=== PATIENT | female | born 1990 | race Caucasian/White ===

== ENCOUNTER 2017-06-06 06:50 | Day surgery (SDC) | payer BC ==
[~2017-06-06] VITALS: Ht 160 cm; Wt 56.7 kg
--- NOTE | 2017-06-06 10:14 | NUR ---
06/06/17 1014 Anneliese Shukla 1005 PATIENT ASLEEP ON ARRIVAL TO PACU, DOES NOT RESPOND TO PAIN OR VERBAL STIMULI. RESP EVEN AND UNLABORED, ORAL AIRWAY IN PLACE, MASK AT 6 LITERS. 1010 PATIENT OPENS EYES TO VERBAL STIMULI, FOLLOWS COMMANDS, OPENS MOUTH, ORAL AIRWAY REMOVED. RESP EVEN AND UNLABORED, MASK AT 6 LITERS. PATIENT DENIES PAIN OR NAUSEA.
--- NOTE | 2017-06-06 10:43 | NUR ---
PT ARRIVES TO DS TREATMENT ROOM FROM PACU ALERT AND ORIENTED. PT DENIES ANY PAIN ON ARRIVAL. PT PROVIDED WARM BLANKET, ICED WATER AND CRACKERS. CALL LIGHT W/IN REACH. NO C/O'S AT THIS TIME.
--- NOTE | 2017-06-06 11:33 | NUR ---
PT RESTING IN BED WITH EYES CLOSED, RESPIRATIONS EVEN AND UNLABORED. PT RESPONDS TO RN ON ARRIVAL TO . PT TOLERATES PO WELL WITH NO C/O NAUSEA. PT DENIES PAIN AT THIS TIME. PT AGREES TO USE CALL LIGHT WHEN READY TO GET UP AND USE BR. CALL LIGHT REMAINS AT PT SIDE.
--- NOTE | 2017-06-06 11:45 | OR ---
[facility] [address], [place] [address] Signed DATE OF OPERATION: 06/06/2017 SURGEON: Sheng Esquivel MD PREOPERATIVE DIAGNOSIS: Right palpable breast lump in the upper outer quadrant (12 x 11 x 9 mm). POSTOPERATIVE DIAGNOSIS: Right palpable breast lump in the upper outer quadrant (12 x 11 x 9 mm). PROCEDURE: Right breast excisional biopsy, upper outer quadrant. ESTIMATED BLOOD LOSS: None. INDICATIONS: Florencio is a 26-year-old female knows to palpable lump in the lateral aspect of her right breast. It is in the area of her breast as it travels over the lateral edge of the pectoralis major muscle and into the axilla. An ultrasound confirmed a 12 x 11 x 9 mm solid nodule with internal vascularity. 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 She was offered a core needle biopsy by her primary care provider in the radiologist. However, she wanted to have it removed entirely. Consequently, she was asked to see me as a general surgeon. In the office, I met with Florencio and her in the office. I gave them [employer] brochure on breast and breast biopsies. We went in great detail regarding a core needle biopsy versus an excisional biopsy. In the end, she has maintained her desire to have an excisional biopsy. She understands there is risk including, but not limited to bleeding, infection, scarring, change in contour of the skin as well as possible need for additional surgery and/or treatments based on pathology results. She had expressed understanding and wished to proceed. PROCEDURE NOTE: I met with Florencio and her in our preop area. With our nurse in the room, Florencio was able to easily use her index finger to show me the palpable lump in the upper outer quadrant of the right breast. We circled that area and marked it appropriately. After this, Florencio was taken into our operating room and placed in the supine position under general endotracheal tube anesthesia. She was given preoperative antibiotics along with subcutaneous heparin. SCDs were utilized. She was then prepped and draped in the usual sterile fashion. I made a 2.54 cm curvilinear incision over the Electronically Signed By: SHENG ESQUIVEL MD 06/06/17 1145 PATIENT NAME: FLORENCIO DANIELS OPERATIVE REPORT DATE OF : 89 REPORT #: [id number] PHYSICIAN: SHENG ESQUIVEL MD PCP: ARUNA GAMBOA PA-C REPORT IS CONFIDENTIAL AND NOT TO BE RELEASED WITHOUT AUTHORIZATION [facility] [address] [place], [place] [address] Signed lesion and carried that down to the tissue bluntly and with the cautery. With repeated palpation, we completely excised the lesion with the help of the cautery. As expected at age 26, Florencio's breast tissue was very dense in fact when one pushes on the edge of her breast tissue, the entire breast moves back and forth across her chest wall. We marked our specimen appropriately. We then injected local anesthetic throughout the wound. The wound was irrigated and suctioned out until clear. The deep tissue was gently approximated with 2 interrupted 3-0 Monocryl sutures. The dermis was reapproximated with interrupted 3-0 subcuticular Monocryl sutures. The skin edges were reapproximated with a running 6-0 fast absorbing plain gut suture. Dry gauze and tape were then applied. Florencio was then awakened from anesthesia, extubated in the OR, and taken to recovery room in stable condition. Sheng Esquivel MD ALB/MODL /[id number] cc: MD Aruna Carye PA-C Copies: SHENG ESQUIVEL MD, CHLOE K PA-C ~ Electronically Signed By: SHENG ESQUIVEL MD 06/06/17 1145 PATIENT NAME: FLORENCIO DANIELS OPERATIVE REPORT DATE OF : 89 REPORT #: [id number] PHYSICIAN: SHENG ESQUIVEL MD PCP: ARUNA GAMBOA PA-C REPORT IS CONFIDENTIAL AND NOT TO BE RELEASED WITHOUT AUTHORIZATION
== END 2017-06-06 12:10 | disposition home or self-care (01) ==
LOC: DS 06:50
PROVIDERS: Colon & Rectal Surgery
PROC: 0HBT0ZX Excision of Right Breast, Open Approach, Diagnostic (ICD-10-PCS; principal; 2017-06-06 08:30)
DX: N63.11 Unspecified lump in the right breast, upper outer quadrant (principal); N64.89 Other specified disorders of breast; J45.909 Unspecified asthma, uncomplicated; G43.909 Migraine, unspecified, not intractable, without status migrainosus; Z87.891 Personal history of nicotine dependence
CPT/HCPCS: 00404; J0690; J1100; J1644; J1885; J2250; J2405; J2704; J2765; J3010; J7120

== ENCOUNTER 2018-12-10 20:06 | Emergency (ER) | payer BC, OTHER ==
[~2018-12-10] VITALS: Ht 160 cm; Wt 71.2 kg
== END 2018-12-10 20:33 | disposition home or self-care (01) ==
LOC: ED 20:06
DX: R51 Headache (principal)

== ENCOUNTER 2019-01-04 17:28 | Inpatient (IN) | payer OTHER ==
[~2019-01-04] VITALS: Ht 160 cm; Wt 76.0 kg
--- NOTE | 2019-01-05 07:49 | PR ---
[facility] [address] [facility] [place], [place] [address] Signed Progress Notes IP Datetime Report Generated by CPN: 01/05/2019 07:49 PROGRESS NOTES: [id number] Impression: Normal progression of labor Plan: Continue present management; Anticipate Vaginal Delivery VITAL SIGNS: [id number] Vital Signs: Reviewed; Within Normal Limits VS Notable Details: Good urine output EXAM: [id number] Dilatation: 4.0 Effacement: 80 Station: -2 Uterine Contractions: every 2-3 minutes MEMBRANES: [id number] Membrane Status: Ruptured Amniotic Fluid Color: Clear ROM Note: SROM about 0715 Comments: Comfortable with Epidural. Patient on back, will try moving to side, increase IV, watch FHR. Fetus A: [id number] FHR Baseline: 120 Variability: Moderate 6-25bpm Accelerations: 15X15 Decelerations: Late Presentation: Vertex Fetus B: [id number] Signing Physician: Presley Turner MD Copies: ~ *Electronically Signed* 01/05/19 0749 PRESLEY TURNER MD PATIENT NAME: FLORENCIO DANIELS PREM PROGRESS NOTE DATE OF : 89 PHYSICIAN: PRESLEY TURNER MD RPT #: [id number] REPORT IS CONFIDENTIAL AND NOT TO BE RELEASED WITHOUT AUTHORIZATION
--- NOTE | 2019-01-05 09:59 | PR ---
[facility] [address] [facility] [place], [place] [address] Signed Progress Notes IP Datetime Report Generated by CPN: 01/05/2019 09:59 PROGRESS NOTES: [id number] Impression: Normal progression of labor Procedures: Scalp Electrode Plan: Continue present management; Anticipate Vaginal Delivery VITAL SIGNS: [id number] Vital Signs: Reviewed; Within Normal Limits VS Notable Details: Good urine output EXAM: [id number] Dilatation: 8.0 Effacement: 95 Station: -2 Uterine Contractions: every 2-3 minutes MEMBRANES: [id number] Membrane Status: Ruptured Amniotic Fluid Color: Clear ROM Note: SROM about 0715 Comments: Comfortable with Epidural, still on MagSO4. FHR variability somewhat decreased, so scalp elctrode applied, tried changing from right side to left side, on O2. More variability, and moving quickly so will continue monitoring FHR. Fetus A: [id number] FHR Baseline: 120 Variability: Moderate 6-25bpm Accelerations: 15X15 Decelerations: Early; Late; Variable Presentation: Vertex Fetus B: [id number] Signing Physician: Pasquale Turner MD Copies: ~ *Electronically Signed* 01/05/19 0959 PASQUALE TURNER MD PATIENT NAME: FLORENCIO DANIELS PROGRESS NOTE DATE OF : 89 PHYSICIAN: PASQUALE TURNER MD RPT #: [id number] REPORT IS CONFIDENTIAL AND NOT TO BE RELEASED WITHOUT AUTHORIZATION
[2019-01-05] MEDS ORDERED: PRENATAL VITAM1 EACH PO (21:35)
--- NOTE | 2019-01-06 13:01 | PR ---
[facility] [address] [facility] [place], [place] [address] Signed PP Progress Notes Datetime Report Generated by CPN: 01/06/2019 13:01 SUBJECTIVE: [id number] Pain: Within normal limits Nausea/Vomiting: Denies Vital Signs: [id number] Vital Signs: Reviewed; Within Normal Limits Notable Details: PP Hgb/Hct = 8.0/23.8 EXAM: [id number] Abdomen/Uterus: Normal Lochia: Normal Extremities: Normal IMPRESSION/PLAN/PROCEDURES: [id number] Impression: Normal progression Other Impression: Preeclampsia Other Plans: D/C MagSO4 Procedures: None Progress Notes: Doing well, BP stable, good urine output; will d/c MagSO4, increase diet and activity Signing Physician: Pasquale Turner MD Copies: ~ *Electronically Signed* 01/06/19 1301 PASQUALE TURNER MD PATIENT NAME: FLORENCIO DANIELS PROGRESS NOTE DATE OF : 89 PHYSICIAN: PASQUALE TURNER MD RPT #: [id number] REPORT IS CONFIDENTIAL AND NOT TO BE RELEASED WITHOUT AUTHORIZATION
--- NOTE | 2019-01-07 13:03 | PR ---
[facility] [address] [facility] [place], [place] [address] Signed PP Progress Notes Datetime Report Generated by CPN: 01/07/2019 13:03 SUBJECTIVE: [id number] Pain: Within normal limits Nausea/Vomiting: Denies Bowel Movement: No Vital Signs: [id number] Vital Signs: Reviewed; Within Normal Limits Notable Details: PP Hgb/Hct = 8.0/23.8 EXAM: [id number] Abdomen/Uterus: Normal Lochia: Normal Extremities: Normal IMPRESSION/PLAN/PROCEDURES: [id number] Impression: Normal progression; Induced Hypertension Other Impression: Preeclampsia Plan: Discharge Other Plans: D/C MagSO4 Procedures: None Progress Notes: Doing well, without complaint. One episode elevated BP today, but normal since then, no MALDONADO or vision cchanges. Patient ready to go home. Signing Physician: Pasquale Turner MD Copies: ~ *Electronically Signed* 01/07/19 6680 PASQUALE TURNER MD PATIENT NAME: FLORENCIO DANIELS PROGRESS NOTE DATE OF : 89 PHYSICIAN: PASQUALE TURNER MD RPT #: [id number] REPORT IS CONFIDENTIAL AND NOT TO BE RELEASED WITHOUT AUTHORIZATION
== END 2019-01-07 14:05 | disposition home or self-care (01) | DRG 768 ==
LOC: FBCO → FBC 18:17
PROVIDERS: ADMIT General Practice
PROC: 3E0P7VZ Introduction of Hormone into Female Reproductive, Via Natural or Artificial Opening (ICD-10-PCS; 2019-01-04)
PROC: 10E0XZZ Delivery of Products of Conception, External Approach (ICD-10-PCS; principal; 2019-01-05)
PROC: 0DQP0ZZ Repair Rectum, Open Approach (ICD-10-PCS; 2019-01-05)
PROC: 0W8NXZZ Division of Female Perineum, External Approach (ICD-10-PCS; 2019-01-05)
PROC: 00HU33Z Insertion of Infusion Device into Spinal Canal, Percutaneous Approach (ICD-10-PCS; 2019-01-05)
PROC: 3E0R3BZ Introduction of Anesthetic Agent into Spinal Canal, Percutaneous Approach (ICD-10-PCS; 2019-01-05)
DX: O14.14 Severe pre-eclampsia complicating childbirth (principal); Z37.0 Single live birth; Z3A.39 39 weeks gestation of pregnancy; O36.8330 Maternal care for abnormalities of the fetal heart rate or rhythm, third trimester, not applicable or unspecified; O90.81 Anemia of the puerperium; D64.9 Anemia, unspecified; O70.3 Fourth degree perineal laceration during delivery; O28.2 Abnormal cytological finding on antenatal screening of mother
CPT/HCPCS: 36415; 82803; 83735; 85027; J2550; J2590; J2795; J3010; J3475; J7120